=== PATIENT | female | born 1980 | race Two or more races ===

== ENCOUNTER 2018-04-23 10:39 | Emergency (ER) | payer MEDICAID ==
[~2018-04-23] VITALS: Ht 152.4 cm; Wt 104.0 kg
[2018-04-23 11:45] VITALS: BP 159/90
[2018-04-23] MEDS ORDERED: IBUPROFEN 800MG TABLET PO ONE (11:45)
== END 2018-04-23 11:48 | disposition home or self-care (01) ==
LOC: ER 10:39
DX: R51 Headache (principal); M79.671 Pain in right foot; M54.2 Cervicalgia; R10.84 Generalized abdominal pain; I10 Essential (primary) hypertension; R42 Dizziness and giddiness; Z88.0 Allergy status to penicillin; V49.88XA Car occupant (driver) (passenger) injured in other specified transport accidents, initial encounter; Y93.89 Activity, other specified; Y92.89 Other specified places as the place of occurrence of the external cause; Y99.8 Other external cause status
CPT/HCPCS: 99283

== ENCOUNTER 2018-07-23 09:23 | Emergency (ER) | payer MEDICAID ==
[~2018-07-23] VITALS: Ht 154.9 cm; Wt 107.0 kg
[2018-07-23 11:23] LABS: CLARITY URINE CLOUDY (CLEAR); COLOR URINE YELLOW (YELLOW); KETONES URINE NEGATIVE (NEGATIVE); LEUKOCYTE ESTERASE URINE 3+ (NEGATIVE); NITRITE URINE NEGATIVE (NEGATIVE); OCCULT BLOOD URINE 2+ (NEGATIVE); PROTEIN URINE NEGATIVE (NEGATIVE); SPECIFIC GRAVITY URINE 1.017 (1.005-1.030)
[2018-07-23 11:33] LABS: BASOPHILS % 0.4 % (0.0-2.0); EOSINOPHILS % 3.2 % (0.0-5.0); HEMATOCRIT. 41.9 % (36.0-48.0); HEMOGLOBIN. 13.7 g/dL (12.0-16.0); LYMPHOCYTES % 24.6 % (20.0-50.0); MEAN CORPUSCULAR HEMOGLOBIN 28.5 pg (28.0-32.0); MEAN CORPUSCULAR VOLUME 87.1 fL (81.0-99.0); MEAN PLATELET VOLUME 8.4 fl (7.4-10.4); MONOCYTES % 5.3 % (2.0-8.0); NEUTROPHILS % 66.5 % (40.0-76.0); PLATELET 360 x1000/uL (130-400); RED BLOOD CELL COUNT 4.81 mill/uL (4.2-5.4); RED CELL DISTRIBUTION WIDTH 13.8 % (11.6-14.6)
[2018-07-23 11:39] LABS: CHLORIDE 103 mEq/L (98-107)
[2018-07-23 14:49] VITALS: BP 135/52
== END 2018-07-23 14:51 | disposition home or self-care (01) ==
LOC: ER 09:23
DX: N39.0 Urinary tract infection, site not specified (principal); I10 Essential (primary) hypertension; E78.00 Pure hypercholesterolemia, unspecified; Z98.890 Other specified postprocedural states; Z90.49 Acquired absence of other specified parts of digestive tract; Z88.0 Allergy status to penicillin
CPT/HCPCS: 36415; 74176; 81025; 87077; 87186; 99284

== ENCOUNTER 2018-07-30 09:48 | Emergency (ER) | payer MEDICAID ==
[~2018-07-30] VITALS: Ht 154.9 cm; Wt 106.0 kg
[2018-07-30 10:39] LABS: CLARITY URINE CLEAR (CLEAR); COLOR URINE YELLOW (YELLOW); KETONES URINE NEGATIVE (NEGATIVE); LEUKOCYTE ESTERASE URINE NEGATIVE (NEGATIVE); NITRITE URINE NEGATIVE (NEGATIVE); OCCULT BLOOD URINE NEGATIVE (NEGATIVE); PROTEIN URINE NEGATIVE (NEGATIVE); SPECIFIC GRAVITY URINE 1.023 (1.005-1.030); UROBILINOGEN URINE 0.2 E.U./dL (0.2-1.0)
[2018-07-30] MEDS ORDERED: HYDROCODONE/ACETAMINOPHEN 5/325MG TABLET PO STA (10:43)
[2018-07-30 11:00] LABS: BASOPHILS % 0.6 % (0.0-2.0); EOSINOPHILS % 3.8 % (0.0-5.0); HEMATOCRIT. 40.6 % (36.0-48.0); HEMOGLOBIN. 13.6 g/dL (12.0-16.0); LYMPHOCYTES % 28.7 % (20.0-50.0); MEAN CORPUSCULAR VOLUME 86.9 fL (81.0-99.0); MEAN PLATELET VOLUME 8.1 fl (7.4-10.4); MONOCYTES % 7.5 % (2.0-8.0); NEUTROPHILS % 59.4 % (40.0-76.0); PLATELET 316 x1000/uL (130-400); RED BLOOD CELL COUNT 4.68 mill/uL (4.2-5.4); RED CELL DISTRIBUTION WIDTH 13.7 % (11.6-14.6)
[2018-07-30 11:02] LABS: CHLORIDE 107 mEq/L (98-107)
[2018-07-30 11:09] LABS: PROTHROMBIN TIME 10.4 sec (9.6-11.0)
[2018-07-30 11:11] VITALS: BP 145/91
[2018-07-30 11:33] LABS: HCG SCREEN NEGATIVE
== END 2018-07-30 12:34 | disposition home or self-care (01) ==
LOC: ER 09:48
DX: M79.18 Myalgia, other site (principal); R10.12 Left upper quadrant pain; R07.89 Other chest pain; E78.00 Pure hypercholesterolemia, unspecified; I10 Essential (primary) hypertension; Z90.710 Acquired absence of both cervix and uterus; Z98.890 Other specified postprocedural states; Z88.0 Allergy status to penicillin
CPT/HCPCS: 36415; 71045; 81025; 84703; 99284

== ENCOUNTER 2019-04-19 10:39 | Emergency (ER) | payer MEDICAID ==
[~2019-04-19] VITALS: Ht 165.1 cm; Wt 118.0 kg
[2019-04-19] MEDS ORDERED: SODIUM CHLORIDE 0.9% 1,000 ML IV ONE (11:30)
[2019-04-19 11:43] LABS: BASOPHILS % 0.4 % (0.0-2.0); EOSINOPHILS % 0.4 % (0.0-5.0); HEMATOCRIT. 42.3 % (36.0-48.0); HEMOGLOBIN. 13.9 g/dL (12.0-16.0); LYMPHOCYTES % 20.5 % (20.0-50.0); MEAN CORPUSCULAR HEMOGLOBIN 28.3 pg (28.0-32.0); MEAN CORPUSCULAR VOLUME 86.4 fL (81.0-99.0); MEAN PLATELET VOLUME 8.6 fl (7.4-10.4); NEUTROPHILS % 73.7 % (40.0-76.0); PLATELET 346 x1000/uL (130-400); RED CELL DISTRIBUTION WIDTH 13.7 % (11.6-14.6)
[2019-04-19 11:49] LABS: CHLORIDE 105 mEq/L (98-107)
[2019-04-19 11:54] LABS: ETHANOL BLOOD < 10 mg/dL
[2019-04-19 12:29] LABS: CLARITY URINE CLEAR (CLEAR); COLOR URINE YELLOW (YELLOW); KETONES URINE NEGATIVE (NEGATIVE); LEUKOCYTE ESTERASE URINE NEGATIVE (NEGATIVE); NITRITE URINE NEGATIVE (NEGATIVE); OCCULT BLOOD URINE TRACE (NEGATIVE); PH URINE 6.5 (4.5-8.0); PROTEIN URINE NEGATIVE (NEGATIVE); SPECIFIC GRAVITY URINE 1.022 (1.005-1.030); UROBILINOGEN URINE 0.2 E.U./dL (0.2-1.0)
[2019-04-19 12:41] LABS: *AMPHETAMINES SCREEN URINE NEGATIVE (NEGATIVE)
[2019-04-19 12:42] LABS: *BARBITURATES SCREEN URINE NEGATIVE (NEGATIVE); *BENZODIAZEPINES SCREEN URINE NEGATIVE (NEGATIVE); *COCAINE SCREEN URINE NEGATIVE (NEGATIVE); CANNABINOID URINE SCREEN NEGATIVE (NEGATIVE); METHADONE URINE SCREEN NEGATIVE (NEGATIVE); OPIATES URINE SCREEN NEGATIVE (NEGATIVE); PHENCYCLIDINE URINE SCREEN NEGATIVE (NEGATIVE)
[2019-04-19 12:49] VITALS: BP 127/67
== END 2019-04-19 12:49 | disposition home or self-care (01) ==
LOC: ER 11:06
DX: R55 Syncope and collapse (principal); I10 Essential (primary) hypertension; E78.00 Pure hypercholesterolemia, unspecified; Z88.0 Allergy status to penicillin; Z90.49 Acquired absence of other specified parts of digestive tract
CPT/HCPCS: 36415; 71045; 80053; 80305; 80320; 81003; 81025; 84484; 85025; 93005; 96360; 99284; J7030; G0480

== ENCOUNTER 2019-09-13 07:34 | Emergency (ER) | payer MEDICAID ==
[~2019-09-13] VITALS: Ht 154.9 cm; Wt 102.0 kg
[2019-09-13] MEDS ORDERED: SODIUM CHLORIDE 0.9% 1,000 ML IV ONE (08:21)
[2019-09-13] MEDS ORDERED: LORAZEPAM 1MG TABLET PO ONE (08:30)
[2019-09-13 08:54] LABS: BASOPHILS % 0.7 % (0.0-2.0); EOSINOPHILS % 2.7 % (0.0-5.0); HEMATOCRIT. 43.2 % (36.0-48.0); HEMOGLOBIN. 14.4 g/dL (12.0-16.0); LYMPHOCYTES % 34.2 % (20.0-50.0); MEAN CORPUSCULAR HEMOGLOBIN 29.1 pg (28.0-32.0); MEAN CORPUSCULAR VOLUME 87.3 fL (81.0-99.0); MEAN PLATELET VOLUME 8.7 fl (7.4-10.4); MONOCYTES % 7.1 % (2.0-8.0); NEUTROPHILS % 55.3 % (40.0-76.0); PLATELET 320 x1000/uL (130-400); RED BLOOD CELL COUNT 4.94 mill/uL (4.2-5.4); RED CELL DISTRIBUTION WIDTH 13.6 % (11.6-14.6)
[2019-09-13 09:00] LABS: CHLORIDE 105 mEq/L (98-107)
[2019-09-13 09:10] LABS: HCG SCREEN NEGATIVE
[2019-09-13 11:06] VITALS: BP 149/78
== END 2019-09-13 12:00 | disposition home or self-care (01) ==
LOC: ER 07:46
DX: F41.1 Generalized anxiety disorder (principal); I10 Essential (primary) hypertension; E78.00 Pure hypercholesterolemia, unspecified; Z91.14 Patient's other noncompliance with medication regimen; Z90.49 Acquired absence of other specified parts of digestive tract; Z88.0 Allergy status to penicillin
CPT/HCPCS: 36415; 70450; 80053; 84484; 84703; 85025; 93005; 96360; 99285; J7030

== ENCOUNTER 2020-03-24 20:10 | Emergency (ER) | payer MEDICAID ==
[~2020-03-24] VITALS: Ht 154.9 cm; Wt 116.0 kg
[2020-03-24] MEDS ORDERED: IBUPROFEN 400MG TABLET PO ONE (21:15)
[2020-03-24] MEDS ORDERED: GUAIFENESIN 200MG TABLET PO ONE (21:15)
[2020-03-24 21:20] VITALS: BP 181/91
== END 2020-03-24 22:33 | disposition home or self-care (01) ==
LOC: ER 20:10
DX: U07.1 COVID-19 (principal); B34.9 Viral infection, unspecified; I10 Essential (primary) hypertension; Z90.49 Acquired absence of other specified parts of digestive tract; Z88.0 Allergy status to penicillin
CPT/HCPCS: 71045; 99284; C9803; U0003

== ENCOUNTER 2020-04-10 12:41 | Emergency (ER) | payer MEDICAID ==
[~2020-04-10] VITALS: Ht 154.9 cm; Wt 104.0 kg
[2020-04-10] MEDS ORDERED: IBUPROFEN 600MG TABLET PO STA (13:23)
[2020-04-10 13:35] VITALS: BP 175/99
[2020-04-10 14:39] LABS: CLARITY URINE CLEAR (CLEAR); COLOR URINE YELLOW (YELLOW); KETONES URINE NEGATIVE (NEGATIVE); LEUKOCYTE ESTERASE URINE NEGATIVE (NEGATIVE); NITRITE URINE NEGATIVE (NEGATIVE); OCCULT BLOOD URINE NEGATIVE (NEGATIVE); PH URINE 6.5 (4.5-8.0); PROTEIN URINE NEGATIVE (NEGATIVE); SPECIFIC GRAVITY URINE 1.011 (1.005-1.030); UROBILINOGEN URINE 0.2 E.U./dL (0.2-1.0)
== END 2020-04-10 15:54 | disposition home or self-care (01) ==
LOC: ER 12:51
DX: B34.9 Viral infection, unspecified (principal); R10.12 Left upper quadrant pain; I10 Essential (primary) hypertension; Z98.890 Other specified postprocedural states; Z88.0 Allergy status to penicillin; Z86.19 Personal history of other infectious and parasitic diseases
CPT/HCPCS: 71045; 81003; 81025; 93005; 99285